=== PATIENT | female | born 1995 | race Hispanic/Latino ===

== ENCOUNTER 2023-01-02 14:33 | Emergency (ER) | payer BC ==
[~2023-01-02] VITALS: Ht 157.5 cm; Wt 64.4 kg
[2023-01-02 16:14] LABS: BASOPHILS 0.3 % (0-2); EOSINOPHILS 0.3 % (0-6); HEMATOCRIT 39.3 % (35.0-50.0); HEMOGLOBIN 13.6 g/dL (12.0-18.0); LYMPHOCYTES 12.4 % (24-44); MCH 31.8 (27-36); MCHC 34.6 g/dl (30-36); MCV 91.9 fl (81-99); MONOCYTES 4.7 % (0-12); NEUTROPHILS 82.3 % (39-80); PLATELET COUNT 206 K/uL (140-440); RBC 4.28 M/ul (4.3-5.7)
[2023-01-02 16:29] LABS: ALBUMIN 3.7 g/dL (3.4-5.0); ALBUMIN/GLOBULIN RATIO 0.97 (1.1-2.4); ANION GAP 11.9 (7-21); BILIRUBIN, TOTAL 0.5 ng/dL (0.2-1.0); BUN/CREATININE RATIO 29.11 (6.0-28.6); CALCIUM 8.8 mg/dL (8.5-10.1); CREATININE, SERUM 0.79 mg/dL (0.55-1.02); POTASSIUM 3.9 mmol/L (3.5-5.1); PROTEIN, TOTAL 7.5 g/dL (6.4-8.2)
--- OUTSIDE RECORDS SUMMARY | 2023-01-02 16:32 | XMS ---
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 [facility] VISIT COUNT (12 MO.) [address] TOTAL 6 NOTE: Visits indicate total known visits. ED/UCC VISIT TRACKING (12 MO.) 01/02/2023 14:34 [facility] [place] TYPE: Emergency COMPLAINT: - FACIAL NUMBNESS 01/02/2023 13:39 [facility] [place] TYPE: Emergency COMPLAINT: - WEAKNESS DIAGNOSES: - WEAKNESS 05/31/2022 22:29 [email or web address] [place] TYPE: Emergency DIAGNOSES: - Unspecified lump in the right breast, upper inner quadrant - BREAST PAIN 05/19/2022 22:36 [facility] [place] TYPE: Emergency DIAGNOSES: - Abnormal uterine and vaginal bleeding, unspecified - VAGINAL BLEEDING 04/06/2022 18:47 [facility] [place] [facility] [place] TYPE: Emergency COMPLAINT: - COVID + BRADSHAW SOB FEVER COUGH BODY ACHES RUNNY NOSE 36WKS PREG DIAGNOSES: - COVID + BRADSHAW SOB FEVER COUGH BODY ACHES RUNNY NOSE 36WKS PREG 01/15/2022 08:41 [facility] [place] TYPE: Emergency DIAGNOSES: - Influenza due to unidentified influenza virus with other respiratory manifestations - COUGH VOMITING CHILLS + SCREENING 6 MO INPATIENT VISIT TRACKING (12 MO.) 04/29/2022 07:37 [facility] [place] TYPE: Womens Services COMPLAINT: - IND OF LABOR DIAGNOSES: - IND OF LABOR [email or web address]
[2023-01-02 17:02] VITALS: BP 110/75
--- NOTE | 2023-01-03 06:36 | EKG ---
[facility] [address] [place], [place] [address] Signed Normal sinus rhythm Normal ECG No previous ECGs available Confirmed by FRIEDA COOK MD ([id number]) on 01/03/2023 6:36:31 AM Electronically Signed By: FRIEDA COOK 01/03/23 0636 PATIENT NAME: PABLO GARCIA Electrocardiogram DATE OF : [birth year] PHYSICIAN: FRIEDA COOK REPORT #: [id number] REPORT IS CONFIDENTIAL AND NOT TO BE RELEASED WITHOUT AUTHORIZATION
== END 2023-01-02 17:04 | disposition home or self-care (01) ==
LOC: ED 14:33
PROVIDERS: Emergency Medicine
DX: F41.0 Panic disorder [episodic paroxysmal anxiety] (principal)
CPT/HCPCS: 36415; 80053; 84703; 85025; 93005; 93010; 99285-25